=== PATIENT | male | born 1945 | race Caucasian/White ===

== ENCOUNTER → 2016-08-01 | Outpatient (CLI) | payer MEDICARE, BC, OTHER | LOC: SP 10:36 | PROVIDERS: ATTEND Physician Assistant | DX: R60.9 Edema, unspecified (principal) | CPT/HCPCS: 93970 ==

== ENCOUNTER 2016-08-02 17:03 | Emergency (ER) | payer MEDICARE, BC, OTHER ==
[2016-08-02 17:50] LABS: ABSOLUTE BASOPHILS # (AUTO) 0.1 10^3/uL (0.0-0.2); ABSOLUTE EOSINOPHILS # (AUTO) 0.2 10^3/uL (0.0-0.6); ABSOLUTE LYMPHOCYTES (AUTO) 1.5 10^3/uL (0.5-4.7); ABSOLUTE MONOCYTES (AUTO) 0.7 10^3/uL (0.1-1.4); ABSOLUTE NEUT (AUTO) 6.9 10^3/uL (1.7-8.2); BASOPHILS % (AUTO) 0.5 % (0-2); EOSINOPHILS % (AUTO) 2.3 % (0-6); HEMATOCRIT 48.1 % (37.9-51.0); HGB HCT DIFFERENCE -0.1; LYMPHOCYTES % (AUTO) 16.5 % (13-45); MEAN CORPUSCULAR HEMOGLOBIN 30.8 pg (27.0-33.4); MEAN CORPUSCULAR HGB CONC 33.4 g/dL (32.0-36.0); MEAN CORPUSCULAR VOLUME 92 fl (80-97); MONOCYTES % (AUTO) 7.1 % (3-13); RED CELL DISTRIBUTION WIDTH 13.6 % (11.5-14.0); SEGMENTED NEUTROPHILS % (AUTO) 73.6 % (42-78); WHITE BLOOD COUNT 9.4 10^3/uL (4.0-10.5)
[2016-08-02 18:19] LABS: ALANINE AMINOTRANSFERASE 40 U/L (21-72); ALKALINE PHOSPHATASE 78 U/L (38-126); ANION GAP 14 (5-19); ASPARTATE AMINO TRANSFERASE 19 U/L (17-59); BILIRUBIN,DIRECT 0.4 mg/dL (0.0-0.4); BILIRUBIN,TOTAL 1.2 mg/dL (0.2-1.3); BLOOD UREA NITROGEN 20 mg/dL (7-20); CALCIUM 9.4 mg/dL (8.4-10.2); CARBON DIOXIDE 26 mmol/L (22-30); CHLORIDE 106 mmol/L (98-107); CREATININE RESULT 0.57 mg/dL (0.52-1.25); GLUCOSE 103 mg/dL (75-110); POTASSIUM 4.1 mmol/L (3.6-5.0); SODIUM 145.9 mmol/L (137-145); TOTAL PROTEIN 6.9 g/dL (6.3-8.2)
[2016-08-02 18:35] LABS: APPEARANCE,URINE CLEAR; BILIRUBIN,URINE NEGATIVE (NEGATIVE); GLUCOSE, URINE NEGATIVE (NEGATIVE); KETONES,URINE NEGATIVE (NEGATIVE); LEUKOCYTE ESTERASE,URINE NEGATIVE (NEGATIVE); NITRITE,URINE NEGATIVE (NEGATIVE); PROTEIN,URINE 100 mg/dL (NEGATIVE); URINE SPECIFIC GRAVITY 1.014; UROBILINOGEN,URINE NEGATIVE mg/dL (<2.0)
--- NOTE | 2016-08-02 18:54 | EKG REPORT ---
SEVERITY:- ABNORMAL ECG - SINUS RHYTHM BORDERLINE LEFT AXIS DEVIATION BORDERLINE PROLONGED QT INTERVAL : Confirmed by: Dylon Johnson MD 02-Aug-2016 18:53:49
--- NOTE | 2016-08-02 18:58 | ER Document Report ---
ED General - General Chief Complaint: General Weakness Stated Complaint: WEAKNESS Time seen by provider: 17:25 Mode of Arrival: Medic Information source: Patient, Relative Notes: 71-year-old male who reports gradually worsening weakness in both lower extremities over the past year since having neck surgery by an orthopedist in [place]. Patient reports he was having some weakness in his left leg before the surgery and the surgery was supposed to make that better. He reports that he went and it's hospital with a cane and came out using a walker. Son reports he thinks the patient has never worked well with physical therapy or occupational therapy and has mostly been in bed particularly over the past several days and that is was prompting his worsening weakness. The patient was seen by Dr. Allison Stoll today at the office and I discussed possibility of assisted living placement. After returning home the patient says he was using a walker and going to the bathroom and became too weak to support himself and called 911. He had no loss of consciousness and did not strike his head. He reports there is nothing new or different about the weakness in his legs now except that it seems to be worse this afternoon and was this morning. Patient was observed to transfer from stretcher to bed with a shuffling gait with the assistance of 2 EMS personnel. Patient reports being in his normal state of health otherwise recently Physical Exam: General: Alert, appears well. HEENT: Normocephalic. Atraumatic. PERRLA. Extraocular movements intact. Oropharynx clear. Neck: Supple. Non-tender. No JVD no carotid bruits Respiratory: No respiratory distress. Clear and equal breath sounds bilaterally. Cardiovascular: Regular rate and rhythm. Abdominal: Normal Inspection. Soft, non-tender. No distension. Normal Bowel Sounds. Back: Non-tender. No deformity or step off. Upper extremities warm with 2+ pulses of cyanosis no edema Lower extremities warm with 3+ edema from knees down bilaterally no Homans sign bilaterally to posterior cells pedis posterior tibial pulses bilaterally brisk capillary refill. Patient has 2 out of 5 motor function in flexion and extension of both lower extremities with 1+ patella and Achilles reflexes. Toes downgoing bilaterally. 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 Normal Mood. Skin: Warm. Dry. Normal color. TRAVEL OUTSIDE OF THE .S. IN LAST 30 DAYS: No Past Medical History - Social History Smoking Status: Former Smoker Frequency of alcohol use: None Drug Abuse: None Family History: Reviewed & Not Pertinent - Past Medical History Cardiac Medical History: Reports: Hx Hypertension Past Surgical History: Reports: Hx Neurologic Surgery - neck surgery Review of Systems - Review of Systems Constitutional: denies: Chills, Fever EENT: denies: Ear pain, Nose pain, Throat pain Cardiovascular: Edema. denies: Chest pain, Dyspnea, Syncope Respiratory: denies: Cough, Short of breath, Wheezing Gastrointestinal: denies: Abdominal pain, Diarrhea, Nausea, Vomiting Genitourinary: denies: Burning, Dysuria Musculoskeletal: See HPI, Leg swelling. denies: Back pain, Muscle pain Skin: denies: Rash Hematologic/Lymphatic: denies: Swollen glands Neurological/Psychological: See HPI, Weakness. denies: Numbness Course - Re-evaluation Re-evalutation: 08/02/16 18:57 I discussed the case with Dr. Allison Stoll patient's physician. Patient meets no criteria for addition to the hospital and is presenting with a mild exacerbation of her chronic ventilatory problem. Son expresses a desire the patient has some type of inpatient physical therapy rehabilitation and I discussed possibility of either subacute rehabilitation in a intermediate setting or inpatient rehabilitation at the rehabilitation facility in [place]. I'll provide him with that number for referral. Dr. Stoll asked that they call his office tomorrow and he can begin working with him further on some type of placement with the aim according to the son attempting to get him strong enough to the point that he can return home - Laboratory Result Diagrams: 08/02/16 17:36 08/02/16 17:36 Laboratory results interpreted by me: 08/02/16 08/02/16 17:36 18:10 Sodium 145.9 H Urine Protein 100 H - Diagnostic Test Radiology reviewed: Image reviewed, Reports reviewed - EKG Interpretation by Me Additional EKG results interpreted by me: 08/02/16 18:56 EKG reviewed by myself shows sinus rhythm at approximately 79 with no acute changes Discharge - Discharge Clinical Impression: Lower extremity weakness Qualifiers: Laterality: bilateral Qualified Code(s): R29.898 - Other symptoms and signs involving the musculoskeletal system Condition: Stable Disposition: HOME, SELF-CARE Additional Instructions: One location that may be able to assist you with inpatient rehabilitation is [facility] [phone] Dr. Iftikhar Alfonso Referrals: YOANA STOLL MD [Primary Care Provider] - Follow up tomorrow
[2016-08-02 19:36] VITALS: BP 171/85
== END 2016-08-02 19:34 | disposition home or self-care (01) ==
LOC: ER 17:03
DX: R53.1 Weakness (principal); R60.0 Localized edema; I10 Essential (primary) hypertension; Z98.890 Other specified postprocedural states; Z87.891 Personal history of nicotine dependence
CPT/HCPCS: 36415; 71010; 80053; 81001; 83880; 85025; 87086; 93005; 93010; 99285

== ENCOUNTER → 2016-08-07 | Outpatient (CLI) | payer MEDICARE, BC, OTHER ==
--- NOTE | 2016-08-08 15:29 | XCELERA REPORT ---
[address] [address] Lower Extremity Arterial Evaluation Name: MIRELLA BHANDARI Age: 71 yrs Gender: Male : 1945 Patient Status: Outpatient Patient Location: Study Date: 08/07/2016 09:49 AM Procedure: A color flow and duplex scan of the lower extremity arteries was performed bilaterally with velocity and waveform anaylsis. Ankle brachial indicies performed. Reason For Study: PAIN Ordering Physician: TORI MOLINA Performed By: Mary Grace Ozuna Measurements and Calculations Right Left IN HOME AIDE PSV 141.4 179.0 cm/sec Prox PFA PSV -66.7 -80.3 cm/sec Prox SFA PSV 103.7 109.4 cm/sec Mid SFA PSV -66.0 -82.0 cm/sec Dist SFA PSV -58.0 -59.4 cm/sec Prox Pop A PSV 67.2 67.2 cm/sec Dist ARNULFO PSV 59.1 63.8 cm/sec Dist OBSTETRICAL NURSE PSV 58.5 50.3 cm/sec Todd Pedis PSV 55.9 -50.3 cm/sec Right Side Arterial Evaluation Normal velocity and triphasic waveforms noted from the Common Femoral artery to the Popliteal artery. Biphasic with great velocities in the infrageniculate vessels. 0-19% stenosis at the infrageniculate level. Ankle Brachial index is 1.1. Left Side Arterial Evaluation Normal velocity and triphasic waveforms noted from the Common Femoral artery to the Popliteal artery. Biphasic with great velocities in the infrageniculate vessels. 0-19% stenosis at the infrageniculate level. Ankle Brachial index is 1.06. Interpretation Summary Mild hemodynamically significant lesions in the bilateral lower extremities, on duplex imaging, at rest. : TORI MOLINA > Coleman Zavala
== END ==
LOC: SP 09:41
PROVIDERS: ATTEND Physician Assistant
DX: M79.606 Pain in leg, unspecified (principal)
CPT/HCPCS: 93925

== ENCOUNTER → 2017-06-04 | Outpatient (CLI) | payer MEDICARE, BC, OTHER ==
--- NOTE | 2017-06-04 14:49 | ST Modified Barium Swallow ---
Recommendation - Recommendations Recommendations: 1. Safest Diet: NPO with alternate means of nutrition. 2. Good oral care to reduce risk of aspiration pneumonia as paitent will likely aspirate oral secretions. 3. Recommend speech therapy at discharge setting. Given patient's severe dysphagia, he would likely benefit from consideration of ice chips for oral moisture or use of Reyes Free Water Protocol. 4. Speech therapy may also be beneficial is assisting with alternative and augmentative communication. Patient may benefit from an AAC system. Can contact [facility] if needed at [phone]. Medical Diagnoses - Medical Diagnoses Medical Diagnosis Description & ICD-10 Code(s): muscle weakness Other Medical Diagnoses/Co-Morbidities: dysphagia, progressive neurological abnormalities, progressive loss of function. - ICD-10 Tx Diagnosis Coding (1) Dysphagia ICD-10 Code(s): R13.10 - DYSPHAGIA, UNSPECIFIED (2) Dysphagia, oral phase ICD-10 Code(s): R13.11 - DYSPHAGIA, ORAL PHASE (3) Dysphagia, oropharyngeal phase ICD-10 Code(s): R13.12 - DYSPHAGIA, OROPHARYNGEAL PHASE (4) Dysphagia, pharyngeal phase ICD-10 Code(s): R13.13 - DYSPHAGIA, PHARYNGEAL PHASE (5) Dysphagia, pharyngoesophageal phase ICD-10 Code(s): R13.14 - DYSPHAGIA, PHARYNGOESOPHAGEAL PHASE ST Modified Barium Swallow - General Date: 06/04/17 Referring Physician: Dr. Veena Roman Risks/Precautions: Falls, Aspiration Date of Onset: 06/03/17 Reason for Referral: Modified Barium Swallow Study - History History obtained from: Other - Medical Records Provided by [facility] -: Medical - Patient is 77 year old male who was admitted to [facility] 06/03/17 following reported chest & abdominal discomfort - patient reported prior to this event was eating a bagel. Patient's physician noted many progressive, profound, neurological abnormalities. Patient lost ambulation function 14 months ago, drawing (favorite hobby) 12 months ago, and stool/ urinary continence a week ago. Also noted progressive difficulties with talking and swallowing. Reported difficulty swallowing solids and liquids. Report indicates reduce oral intake. Reports speech reduced to single word utterances. Prior medical history is significant for hypertension, weakness, depression, left shoulder injury, cervical fusion in spring 2014. Medications: Losartan, Zoloft. IV Potassium. Allergies: NKDA. - Functional Status Prior Functional Status: DEFICIT: ADL, IADL, community mobility, communication, feeding, leisure/play Current Functional Limitations: ADL, IADL, community mobility, communication, feeding, leisure/play - Subjective Cognitive-Linguistic Function: Functional - Patient responded appropriately to yes-no questions, able to indicate through head shake & nod. Patient able to make limited gestures but generally required yes-no questions to understand meaning. Speech Intelligibility: Severely dysarthric - able to verbalize only a few words ; speech appeared to be effortful with significant delays in initiation Current symptoms: Poor intake Pain: 0/5 - Objective Assessment: Upright, Left Lateral - Food Trials Used Food trials used: Thin liquids, Honey-thickened liquids, Pureed The patient: fed by ST, via spoon - Patient - Oral-Motor Skills Dentition: Partial Velo-pharyngeal function: Not assessed Oral Motor Skills: Fasiculations noted in lips and chin. - Assessment Oral prep: Severely Impaired Labial closure: Reduce closure Leakage: None - but only small bites and sips were administered - suspect patient would have difficulty containing typical size bites & sips Lingual Movement: Discoordinated, Weak Oral stage: Significantly Impaired, Impaired Bolus Propulsion Oral Stage: Chewing not assessed during this procedure as patient was not safe for any liquid consistencies or purees. Patient initially requested straw for drinking, but unable to pull liquid from straw. - Pharyngeal Stage Initiation of Pharyngeal Stage Reflex: Delayed Decreased laryngeal elevation: Yes Reduced Velopharyngeal Closure: yes Reduced pressure generation: Yes reduced tongue-based retraction: Yes Pre-swallow pooling in valleculae: Moderate Pre-Swallow pooling in pyriforms: None Reduced Thyro-Hyoid approximation: Yes Reduced epiglottic excursion: Yes Reduced pharyngeal peristalsis/contraction: Yes Multiple Swallows with: Ineffective Clearance Post-swallow residulas vallecular: Moderate - Fall Risk Assessment Medications/Conditions that increase fall risks include: Antidepressants, sedatives, anti-arrhythmic, diuretic, benzodiazipenes, neuroleptics. BP regulation problems, cardiac problems, balance or gait deficits, neurological problems. Is patient considered at risk for falls: yes Fall Risk Actions Taken: Pt physician notified - Behavioral Observations During evaluation process patient: was pleasant, able to answer questions - Treatment / Educational Needs: Treatment/Education Needs: Treatment consisted of patient education on the role of the Speech Pathologist. Patient's plan of care and golas were communicated as well as scheduling and attendance policies. Recommendations for initial home program were shared. Patient demonstrated understanding and verbalized agreement. Initial home program recommendations: Written and verbal education provided on dysphagia, risk of aspiration pneumonia, and oral care. Patient was educated on anatomy, aspiration, risk of aspiration, and study results by [facility]. Patient shook head "no" when [facility] educated that patient could discuss continuing to eat with doctor and nodded head "yes" when educated that he may consider non-oral nutrition like a tube with his doctor. Patient endorses that eating and drinking is difficult and effortful, also endorsed feeling food and liquids "go down the wrong way". - Impression/Summary Laryngeal Penetration: Yes, after swallow Consistency: Thin, Honey, Pudding Tracheal Aspiration: yes, deep, silent, after swallow Productive cough: No Effective Clearing: no Patient presents with: Oral stage dysphagia, Pharyngeal stage dysph., Oral- Pharyngeal dysph., Severe Risk of Aspiration: Severe Risk of nutritional compromise: Severe Evaluation and Findings: Patient presents with severe dysphagia characterized by aspiration of all presented consistencies (thin liquids, puree, & honey thick liquids) after the swallow, residuals after the swallow and severely reduced strength and range of motion of swallowing structures. Patient unable to perform strategies such as throat clear and re-swallow. Recommend consideration of NPO. Based on findings in study, patient likely to aspirate any consistency and unsafe for oral nutrition and hydration. Patient at risk for aspiration pneumonia based on aspiration of food & liquids, non-ambulatory status, and dependency for feeding & oral care. - Recommendations NPO: yes Strict aspiration precautions: Yes Pt/Family education and followup with MD: Yes Dysphagia therapy with [facility]: yes - Recommend speech therapy in discharge setting. Information, Precautions and Recommendations: Patient (Written), Patient (Verbal ) - Time Total Time: 20 - Plan of Care POC Procedures/Codes: pt/family education, MBSS (49632) Strategies to optimize patient understanding include:: ongoing assessment of educational needs, implementation of educational strategies, and re-education. - - -: Thank you for the opportunity to work with this patient and his/her family. Should you have any questions about this patient's plan or progress, I can be reached at [phone]. Charge G Code? - - -: Yes ST F.L. Impairment Category - Rationale Based On Rationale Based On: Clin Find., Obj Measures - Swallowing Current G8996: CM 80-99% Impaired Goal G8997: CM 80-99% Impaired Discharge G8998: CM 80-99% Impaired
--- NOTE | 2017-06-04 15:34 | RADIOLOGY REPORT (SQ) ---
EXAM DESCRIPTION: COOKIE SWALLOW COMPLETED DATE/TIME: 06/04/2017 2:54 pm REASON FOR STUDY: DYSPHAGIA (R13.10) R13.10 DYSPHAGIA, UNSPECIFIED FOOD IN PHARYNX CAUSING OTHER IN JURY, SEQUELA T17.228 S COMPARISON: None. TECHNIQUE: Videofluoroscopic swallowing examination was performed in conjunction with speech patholo gy. Videofluoroscopic imaging was obtained and reviewed and these are the findings: RADIATION DOSE: Total fluoroscopy time: 1 minutes 22 seconds 1 fluoroscopy image saved to PACS. LIMITATIONS: None FINDINGS: The patient was brought into the fluoro room and placed upright on a modified barium swall ow chair. The patient was then given multiple consistencies mixed with barium to swallow under live fluoroscopic video guidance. According to the Speech Pathologist there was laryngeal penetration a w ith thin, honey thick, and purees consistencies. Tracheal aspiration is noted with thin, honey thick , and post swallow residual materials. No significant oral or pharyngeal phase delay. Mild post swa llow residual was noted within the vallecula and piriforms. Please see speech pathology report for f urther details and recommendations. IMPRESSION: LARYNGEAL PENETRATION AND TRACHEAL ASPIRATION OF MULTIPLE CONSISTENCIES ABOVE.PLEASE SEE SPEECH PATHOLOGIST REPORT FOR OTHER FINDINGS AND RECOMMENDATIONS. COMMENT: Quality ID [id number]: Final reports for procedures using fluoroscopy that document radiation exp osure indices, or exposure time and number of fluorographic images (if radiation exposure indices are not available) TECHNICAL DOCUMENTATION: JOB ID: [id number] [employer]- All Rights Reserved Reading location - IP/workstation name: [email or web address]
== END ==
LOC: RAD 14:22
PROVIDERS: ATTEND Family Medicine
DX: R13.12 Dysphagia, oropharyngeal phase (principal); I10 Essential (primary) hypertension; R53.83 Other fatigue; F32.9 Major depressive disorder, single episode, unspecified
CPT/HCPCS: 74230